=== PATIENT | female | born 1990 | race Caucasian/White ===

== ENCOUNTER 2023-10-11 01:37 | Emergency (ER) | payer OTHER ==
[~2023-10-11] VITALS: Ht 160 cm; Wt 49.9 kg
[2023-10-11 03:11] LABS: Source, Urine Clean Catch
[2023-10-11 03:16] LABS: Blood, Urine Neg (Neg); Glucose Qualitative, Urine Neg (Neg); Ketones, Urine Neg (Neg); Leukocyte Esterase, Urine Neg (Neg); Nitrite, Urine Pos (Neg); Protein, Urine 1+ (Neg); Specific Gravity, Urine 1.025 (1.003-1.022); Urobilinogen, Urine 2+ (Normal)
[2023-10-11 03:24] LABS: Appearance, Urine Clear (Clear); Bilirubin, Urine 2+ (Neg); Color, Urine Orange (P-Yellow)
[2023-10-11 03:36] LABS: White Blood Cells, Urine 0-2 /hpf (0-5)
[2023-10-11 03:40] LABS: Bacteria Few /hpf; Squamous Epithelial Cells Rare /hpf (Few)
[2023-10-11 03:41] LABS: Amorphous Light (0-Heavy)
[2023-10-11] MEDS ORDERED: Ibuprofen 600 MG Tab PO ONE (03:45)
[2023-10-11] MEDS ORDERED: Trimethoprim/Sulfamethoxazole DS Tab PO ONE (03:45)
[2023-10-11] MEDS ORDERED: Bactrim Ds Tab1 EACH PO (03:47)
== END 2023-10-11 04:03 | disposition home or self-care (01) ==
LOC: ER 01:37
PROVIDERS: Emergency Medicine
DX: N39.0 Urinary tract infection, site not specified (principal)
CPT/HCPCS: 81001; 81025; 87086; 99283; A9270

== ENCOUNTER 2024-07-11 03:16 | Emergency (ER) | payer OTHER ==
[~2024-07-11] VITALS: Ht 160 cm; Wt 50.8 kg
[~2024-07-11 03:16] MED LIST: Bactrim Ds Tab1 EACH PO
[2024-07-11] MEDS ORDERED: Ibuprofen 600 MG Tab PO ONE (05:00)
[2024-07-11] MEDS ORDERED: Amoxicillin/Clavulanate K 875 MG Tab PO ONE (05:00)
[2024-07-11] MEDS ORDERED: AMOCLA875 PO (05:01)
== END 2024-07-11 05:10 | disposition home or self-care (01) ==
LOC: ER 03:16
DX: H66.92 Otitis media, unspecified, left ear (principal); Z59.89 Other problems related to housing and economic circumstances
CPT/HCPCS: 99282; A9270